=== PATIENT | female | born 1990 | race African-American/Black ===

== ENCOUNTER 2022-03-02 06:29 | Day surgery (SDC) | payer OTHER ==
[2022-02-24 13:29] VITALS: BMI 34.7
[2022-03-02] MEDS ORDERED: PROPOFOL 40 ML ONE (07:49)
[2022-03-02] MEDS ORDERED: MIDAZOLAM HCL 2 MG/2 ML SINGLE DOSE VIAL ONE (07:49)
[2022-03-02] MEDS ORDERED: LIDOCAINE HCL 2% JELLY (5 ML/TUBE) ONE (07:51)
[2022-03-02] MEDS ORDERED: BUPIVACAINE HCL/PF 2.5 MG/ML - 30 ML VIAL IJ ONE (08:52)
[2022-03-02] MEDS ORDERED: ceFAZolin SODIUM 1 GM VIAL ONE (09:03)
[2022-03-02] MEDS ORDERED: ONDANSETRON 4 MG/2 ML VIAL ONE ×2 (09:03→10:26)
[2022-03-02] MEDS ORDERED: DEXAMETHASONE SOD PHOSPHATE 4 MG/1 ML VIAL ONE (09:03)
[2022-03-02] MEDS ORDERED: PROPOFOL 60 ML ONE (09:06)
[2022-03-02] MEDS ORDERED: BUPIVACAINE HCL/PF 0.25% (2.5MG/ML) 10 ML VIAL IJ ONE (09:19)
[2022-03-02] MEDS ORDERED: ONDANSETRON 4 MG/2 ML VIAL IVPUSH PRN (09:33)
[2022-03-02] MEDS ORDERED: oxyCODONE HCL 5 MG TABLET PO PRN ×2 (09:33)
[2022-03-02] MEDS ORDERED: FENTANYL CITRATE/PF 50 MCG/ML VIAL ONE ×2 (09:57→10:26)
[2022-03-02] MEDS ORDERED: oxyCODONE HCL 5 MG TABLET ONE (11:26)
[2022-03-02 11:54] VITALS: TEMP 97.8
[2022-03-02 14:59] VITALS: BP 118/76; PULSE 79; RESP 18
== END 2022-03-02 13:00 | disposition home or self-care (01) ==
LOC: FASU 06:29
PROVIDERS: ATTEND Orthopaedic Surgery Sports Medicine
PROC: 0SBD4ZZ Excision of Left Knee Joint, Percutaneous Endoscopic Approach (ICD-10-PCS; principal; 2022-03-02 09:04)
DX: S83.242A Other tear of medial meniscus, current injury, left knee, initial encounter (principal); M65.862 Other synovitis and tenosynovitis, left lower leg; M94.262 Chondromalacia, left knee; X58.XXXA Exposure to other specified factors, initial encounter; Y93.9 Activity, unspecified; Y92.9 Unspecified place or not applicable
CPT/HCPCS: 81025; 94760